=== PATIENT | female | born 1960 | race Asian ===

== ENCOUNTER → 2016-07-21 | Outpatient (CLI) | payer BC ==
[~2016-07-21] MED LIST: GENTAMICIN OPTHA3 GM OD; NORCO 325 MG-51 TAB PO; SYNTHROID0.075 MG/T PO; TYLENOL 325MG325 MG
== END ==
LOC: MC.RAD 13:40
DX: Z12.31 Encounter for screening mammogram for malignant neoplasm of breast (principal)

== ENCOUNTER → 2017-07-27 | Outpatient (CLI) | payer BC | LOC: MC.RAD 13:49 | DX: Z12.31 Encounter for screening mammogram for malignant neoplasm of breast (principal) ==

== ENCOUNTER → 2018-02-20 | Outpatient (CLI) | payer BC ==
[~2018-02-20] MED LIST changes: +COZAAR100 MG PO; +DOXYCYCLINE 10100 MG PO; +FLEXERIL 1010 MG/TAB PO; +TESSALON P100 MG/CAP PO
== END ==
LOC: COL.RAD 14:39
DX: I70.0 Atherosclerosis of aorta (principal); R10.12 Left upper quadrant pain
CPT/HCPCS: Q9967

== ENCOUNTER → 2018-07-30 | Outpatient (CLI) | payer BC | LOC: MC.RAD 07-29 14:40 | DX: Z12.31 Encounter for screening mammogram for malignant neoplasm of breast (principal) ==

== ENCOUNTER → 2019-08-14 | Outpatient (CLI) | payer BC | LOC: MC.RAD 08:07 | DX: Z12.31 Encounter for screening mammogram for malignant neoplasm of breast (principal) ==

== ENCOUNTER → 2020-08-16 | Outpatient (CLI) | payer BC | LOC: MC.RAD 13:47 | DX: Z12.31 Encounter for screening mammogram for malignant neoplasm of breast (principal) ==

== ENCOUNTER → 2021-10-06 | Outpatient (CLI) | payer BC | LOC: MC.RAD 14:04 | DX: Z12.31 Encounter for screening mammogram for malignant neoplasm of breast (principal) ==

== ENCOUNTER → 2023-10-16 | Outpatient (CLI) | payer BC | LOC: MC.RAD 07:01 | DX: Z12.31 Encounter for screening mammogram for malignant neoplasm of breast (principal) ==